=== PATIENT | male | born 1980 | race Caucasian/White ===

== ENCOUNTER 2021-03-24 00:59 | Emergency (ER) | payer BC, SELFPAY ==
[2021-03-24] VITALS (13 sets, daily range): BP systolic 121–141; BP diastolic 65–85; PULSE 98–141; RESP 14–47; TEMP 36.9; O2SAT 97–100
--- NOTE | ~2021-03-24 | XR_ITS ---
EXAMINATION: XR chest 1V portable DATE: 03/24/2021 01:40 INDICATION: Cough. Shortness of breath. TECHNIQUE: A single frontal view of the chest was obtained. COMPARISON: Chest 2 views 07/17/2017 FINDINGS: The chest demonstrates clear lungs without pneumonia, pleural effusion, or pneumothorax. Th e heart size is normal. IMPRESSION: 1. No acute cardiopulmonary disease. Reviewed, dictated and finalized at location A.
[2021-03-24] MEDS: SODIUM CHLORIDE 0.9% IV 1,000 ML 999 ML IV CONT (01:37)
[2021-03-24] MEDS: KETOROLAC 30 MG/ML VIAL (*BKC) IV PUSH (01:40)
[2021-03-24 01:43] LABS: Basophils Percent Auto 0.3 % (0.2-1.2); Eosinophils Absolute Auto 0.1 K/mm3 (0-0.3); Hematocrit 39.3 % (42.0-52.0); Hemoglobin 13.8 g/dL (14.0-18.0); Immature Granulocyte Absolute 0.02 K/mm3 (0.00-0.031); Immature Granulocyte Percent A 0.2 % (0-0.5); Lymphocytes Absolute Auto 0.84 K/mm3 (0.9-3.2); Lymphocytes Percent Auto 8.6 % (18.3-44.2); Mean Corpuscular HGB Conc 35.1 g/dl (32-36); Mean Corpuscular Hemoglobin 30.1 pg (26-34); Mean Corpuscular Volume 85.8 fl (80-100); Mean Platelet Volume 10.7 fl (7.4-10.4); Monocytes Absolute Auto 0.5 K/mm3 (0.1-0.6); Monocytes Percent Auto 5.5 % (2.6-8.5); Neutrophils Absolute Auto 8.3 K/mm3 (1.3-6.7); Neutrophils Percent Auto 84.4 % (45.5-73.1); Platelet Count Result 232 k/mm3 (150-375); Red Blood Count 4.58 M/mm3 (4.6-6.20); Red Cell Distribution Width 12.1 % (11.5-14.5); White Blood Count 9.8 K/mm3 (4.5-10.0)
[2021-03-24 02:08] LABS: Anion Gap 7 mmol/L (8-16); Blood Urea Nitrogen 11 mg/dL (9-20); Calcium 9.3 mg/dL (8.4-10.2); Carbon Dioxide 29 mmol/L (22-30); Chloride 105 mmol/L (98-107); Estimated CRCL calculation 85 ml/min; Estimated Glomerular Filt Rate > 60; Glucose 122 mg/dL (75-110); Potassium 3.8 mmol/L (3.4-5.0); Sodium 141 mmol/L (137-145)
--- NOTE | 2021-03-24 03:20 | ED.SOB ---
HPI - SOB/Dyspnea General Chief Complaint: Shortness of Breath/Dyspnea Stated Complaint: cough Time Seen by Provider: 03/24/21 01:06 History of Present Illness HPI Narrative: Patient is a 40-year-old male who presents ER with cough and shortness of breath. Patient reports over the last day he has developed sinus congestion with sore throat and productive cough. Lying down makes his coughing and sore throat worse. He reports he coughs to the extent that sometimes he feels like he may throw up. He is not vaccinated against Covid. He reports a family member has recently had an illness but is unsure what the diagnosis was. Denies chest pain or chest pressure. Shortness of breath occurs when he has prolonged coughing street and not with exertion. Patient is concerned he is dehydrated from having a fever and needs IV fluid. Related Data Allergies Allergy/AdvReac Type Severity Reaction Status Date / Time No Known Drug Allergies Allergy Mild Verified 04/27/10 23:13 Review of Systems Review of Systems: All systems reviewed & are unremarkable except as noted in HPI and below Constitutional: Constitutional: Reports chills, Reports fatigue and Reports fever(s) ENT: Reports nasal congestion and Reports sore throat Cardiovascular: Cardiovascular: Denies chest pain and Denies radiating jaw, neck or arm pain Respiratory: Respiratory: Denies chest congestion, Reports cough, Reports dyspnea and Denies wheezing Gastrointestinal: Gastrointestinal: Denies abdominal pain, Denies nausea and Denies vomiting Musculoskeletal: Musculoskeletal: Reports myalgias and Denies muscle cramps PMFSH Past Medical History Medical History (Updated 03/24/21 @ 03:27 by Lazaro Lott MD) Healthy adult male Surgical History Surgical History (Updated 03/24/21 @ 03:27 by Lazaro Lott MD) No pertinent past surgical history Exam Narrative: Exam Narrative: GENERAL: Well-appearing, well-nourished, and in no acute distress. HEAD: Normocephalic, atraumatic. ENT: Mucous membranes moist. Pharyngeal erythema without tonsillar hypertrophy or exudate. Uvula midline and nonedematous. TMs normal bilaterally. CHEST: Clear to auscultation. No respiratory distress. HEART: Tachycardic and regular. Normal peripheral pulses. EXTREMITIES: Normal range of motion. No edema. NEURO: Alert and oriented x3. PSYCH: Normal mood and affect. Course Course Emergency Course: Patient swabbed for Covid and strep. Heart rate improved and feels better with IV fluid. Strep negative. Discussed results and treatment plan. Patient verbalized understanding. Vital Signs Vital signs: Vital Signs Temperature 98.5 F 03/24/21 01:01 Pulse Rate 141 H 03/24/21 01:01 Respiratory Rate 22 H 03/24/21 01:01 Blood Pressure 141/69 H 03/24/21 01:01 Pulse Oximetry 100 03/24/21 01:01 Temperature 98.5 F 03/24/21 01:01 Pulse Rate 103 H 03/24/21 02:30 Respiratory Rate 28 H 03/24/21 02:30 Blood Pressure 121/85 03/24/21 02:01 Pulse Oximetry 99 03/24/21 02:30 MDM - SOB/Dyspnea Lab Data Result diagrams: 03/24/21 01:35 03/24/21 01:35 Labs: Lab Results 03/24/21 03/24/21 03/24/21 Range/Units 01:35 01:35 02:36 WBC 9.8 (4.5-10.0) K/mm3 RBC 4.58 L (4.6-6.20) M/mm3 Hgb 13.8 L (14.0-18.0) g/dL Hct 39.3 L (42.0-52.0) % MCV 85.8 (80-100) fl MCH 30.1 (26-34) pg MCHC 35.1 (32-36) g/dl RDW 12.1 (11.5-14.5) % Plt Count 232 (150-375) k/mm3 MPV 10.7 H (7.4-10.4) fl Immature Gran % (Auto) 0.2 (0-0.5) % Neut % (Auto) 84.4 H (45.5-73.1) % Lymph % (Auto) 8.6 L (18.3-44.2) % Brown % (Auto) 5.5 (2.6-8.5) % Eos % (Auto) 1.0 (0-4.4) % Baso % (Auto) 0.3 (0.2-1.2) % Lymph # (Auto) 0.84 L (0.9-3.2) K/mm3 Brown # (Auto) 0.5 (0.1-0.6) K/mm3 Eos # (Auto) 0.1 (0-0.3) K/mm3 Baso # (Auto) 0.0 (0.0-0.1) K/mm3 Abs Immat Gran (auto) 0.02 (0.00
[2021-03-24 19:46] LABS: SARS-CoV-2 RNA PCR Negative
== END 2021-03-24 03:32 | disposition home or self-care (01) ==
PROVIDERS: Emergency Provider Emergency Medicine
DX: B34.9 Viral infection, unspecified (principal); Z20.822 Contact with and (suspected) exposure to COVID-19
CPT/HCPCS: 36415; 71045; 80048; 85025; 87081; 87880; 96361; 96374; 99284; C9803; J1885; J7030; U0003; U0005

== ENCOUNTER → 2021-10-30 02:29 | Outpatient (CLI) | payer BC, SELFPAY ==
[2021-10-30 20:10] LABS: SARS-CoV-2 RNA PCR Positive
== END ==
PROVIDERS: PCP Family Medicine; Visit Provider Nurse Practitioner Family
DX: U07.1 COVID-19 (principal)
CPT/HCPCS: C9803; U0003; U0005

== ENCOUNTER 2022-04-12 09:47 | Emergency (ER) | payer BC, SELFPAY ==
--- NOTE | ~2022-04-12 | XR_ITS ---
EXAMINATION: XR chest 2V 04/12/2022 10:12 INDICATION: Right-sided chest pain PROCEDURE: 2 view chest COMPARISON: 03/24/2021 FINDINGS: The lungs are clear. The cardiomediastinal silhouette is within normal limits. There are no pleural effusions. There is no pneumothorax suspected. IMPRESSION: 1: NO ACUTE CARDIOPULMONARY DISEASE. Reviewed, dictated and finalized at location A.
[2022-04-12 09:55] VITALS: BP 128/82; PULSE 81; RESP 20; TEMP 36.3; O2SAT 100
[2022-04-12 09:59] VITALS: PULSE 86
--- NOTE | 2022-04-12 09:59 | ECG_ITS ---
Measurements Intervals [place] Rate: 92 P: 69 ID: [id number] QRS: 11 QRSD: 97 T: 26 QT: 348 QTc: 432 Interpretive Statements SINUS RHYTHM WITHIN NORMAL LIMITS NO PREVIOUS ECG AVAILABLE FOR COMPARISON Electronically Signed On 04-12-2022 14:40:49 CDT by Brian Luna M.D.
[2022-04-12 10:09] LABS: Basophils Percent Auto 0.5 % (0.2-1.2); Eosinophils Absolute Auto 0.1 K/mm3 (0-0.3); Eosinophils Percent Auto 2.2 % (0-4.4); Hematocrit 41.2 % (42.0-52.0); Hemoglobin 14.1 g/dL (14.0-18.0); Immature Granulocyte Absolute 0.02 K/mm3 (0.00-0.031); Immature Granulocyte Percent A 0.4 % (0-0.5); Lymphocytes Absolute Auto 2.31 K/mm3 (0.9-3.2); Lymphocytes Percent Auto 41.4 % (18.3-44.2); Mean Corpuscular HGB Conc 34.2 g/dl (32-36); Mean Corpuscular Hemoglobin 30.2 pg (26-34); Mean Corpuscular Volume 88.2 fl (80-100); Mean Platelet Volume 10.3 fl (7.4-10.4); Monocytes Absolute Auto 0.4 K/mm3 (0.1-0.6); Neutrophils Absolute Auto 2.7 K/mm3 (1.3-6.7); Neutrophils Percent Auto 48.5 % (45.5-73.1); Platelet Count Result 258 k/mm3 (150-375); Red Blood Count 4.67 M/mm3 (4.6-6.20); White Blood Count 5.6 K/mm3 (4.5-10.0)
[2022-04-12 10:21] LABS: Alanine Aminotransferase 30 U/L (6-50); Albumin Level 4.7 g/dL (3.5-5.1); Alkaline Phosphatase 52 U/L (38-126); Anion Gap 8 mmol/L (8-16); Aspartate Amino Transferase 36 U/L (17-59); Bilirubin,Total 0.8 mg/dL (0.2-1.3); Blood Urea Nitrogen 17 mg/dL (9-20); Carbon Dioxide 24 mmol/L (22-30); Chloride 105 mmol/L (98-107); Estimated CRCL calculation 92 ml/min; Estimated Glomerular Filt Rate > 60; Glucose 103 mg/dL (65-110); Lipase 118 U/L (23-300); Potassium 4.1 mmol/L (3.4-5.0); Sodium 137 mmol/L (137-145)
--- NOTE | 2022-04-12 10:25 | ED.CHESTPAIN ---
HPI - Chest Pain General Chief Complaint: Chest Pain Stated Complaint: Chest Heavy, Pain Time Seen by Provider: 04/12/22 09:54 Source: RN notes reviewed History of Present Illness HPI narrative: Patient presents emergency department from home for chest pain. Patient states that this morning he awoke and was getting up for a walk when he began to notice pain in the right side of his chest the pain is located under the right lower chest and is described as sharp and stabbing he states the pain is present when he takes a deep inspiration but resolves when he holds his breath or is not breathing the patient states that he has had no fevers or chills no cough no abdominal pain no nausea vomiting. He denies any radiation of the pain. Patient states he is supposed to be getting this evening Related Data Allergies Allergy/AdvReac Type Severity Reaction Status Date / Time No Known Drug Allergies Allergy Mild none Verified 09/04/21 08:45 Review of Systems Review of Systems: Gen.: Denies fevers or chills ENT: Denies congestion Respiratory: Denies shortness of breath or cough CV: See HPI GI: Denies abdominal pain nausea, emesis or diarrhea Musculoskeletal: Denies back pain or muscle pain Neuro: Denies numbness, tingling, weakness or focal weakness Skin: Denies rash Except as documented, all other systems reviewed and negative [facility] Past Medical History Medical History BMI 26.0-26.9,adult Healthy adult male Surgical History Surgical History No pertinent past surgical history Family History Family History Father Lung cancer Mother Rheumatoid arthritis Sibling No problems noted. Social History Social History Smoking status: Never smoker Second hand tobacco smoke exposure: No Alcohol intake: current Substance use: never Substance use type: does not use Additional occupation/education comments: sales Gender identity (if verbalized by the patient): Male Exam Narrative: APPEARANCE: No acute distress, nontoxic, resting in bed EYES: EOMI HEENT: Normocephalic, atraumatic, OMM RESPIRATORY: No respiratory distress Clear to auscultation bilaterally with no rhonchi wheezing or rales. CARDIOVASCULAR: Regular rate and rhythm without murmurs rubs or gallops. Chest: No tenderness to palpation pain with deep inspiration on the right lower chest resolved with holding breath ABDOMINAL: Soft, nontender, nondistended, no rebound or guarding MUSCULOSKELETAl: Moves all extremities. No clubbing, cyanosis or edema. NEURO: Awake and alert. Following commands, speech normal, no focal deficits SKIN:: Warm, dry. No rashes lesions or abrasions PSYCHIATRIC: Normal affect/mood, Course Course Emergency Course: Patient states chest pain has resolved with medication Discussed with patient results of workup and diagnosis. Discussed need for follow-up with primary care, proper use of medication, and reasons to return to the emergency department. Patient understands and agrees to current treatment plan Vital Signs Vital signs: Vital Signs Temperature 97.3 F L 04/12/22 09:55 Pulse Rate 81 04/12/22 09:55 Respiratory Rate 20 04/12/22 09:55 Blood Pressure 128/82 04/12/22 09:55 Pulse Oximetry 100 04/12/22 09:55 Oxygen Delivery Room Air 04/12/22 09:55 Temperature 97.3 F L 04/12/22 09:55 Pulse Rate 86 04/12/22 09:59 Respiratory Rate 20 04/12/22 09:55 Blood Pressure 128/82 04/12/22 09:55 Pulse Oximetry 100 04/12/22 09:55 Oxygen Delivery Room Air 04/12/22 09:55 MDM - Chest Pain MDM Narrative Medical decision making narrative: Patient's EKGs and labs are without significant high risk changes. Cardiac risk factors reviewed. Patient is felt likely low ri
[2022-04-12 10:27] LABS: Prothrombin Time 13.2 Seconds (11.1-14.7)
[2022-04-12 10:28] LABS: Partial Thromboplastin Time 28.8 SECONDS (22.3-36.8)
[2022-04-12] MEDS: KETOROLAC 30 MG/ML VIAL (*BKC) IV PUSH (10:40)
[2022-04-12 10:44] LABS: Troponin I < 0.012 ng/mL (0.000-0.034)
[2022-04-12 11:17] LABS: D Dimer < 0.27 ug/mL (<0.48)
[2022-04-12 12:50] LABS: Troponin I < 0.012 ng/mL (0.000-0.034)
[2022-04-12 13:01] VITALS: BP 124/67; PULSE 80; RESP 18; O2SAT 100
== END 2022-04-12 13:03 | disposition home or self-care (01) ==
PROVIDERS: Emergency Provider Emergency Medicine; PCP Family Medicine
DX: R07.89 Other chest pain (principal)
CPT/HCPCS: 36415; 71046; 80053; 83690; 84484; 85025; 85380; 85610; 85730; 93005; 96374; 99284; J1885

== ENCOUNTER 2022-08-30 01:23 | Day surgery (SDC) | payer BC, SELFPAY ==
[2022-08-27 13:34] VITALS: BMI 26.6
--- NOTE | 2022-08-27 13:40 | PC.NURSE ---
Report to the Outpatient Waiting Room, entrance under the green pavilion located off [facility], at time _1000 on date 08/30/22. Planned Procedure Time: _1200_. Time changes happen often and if your time is changed the preop area will call you the afternoon before. - You and your visitor will be asked to self-screen and do not enter if you have any COVID symptoms. - We encourage only one visitor and NO visitors under age 16 are allowed at this time. Your visitor will receive communication by the phone number that is given day of service. - The patient visitor is requested to social distance or may leave the building when not with patient due to restrictions. - A mask is required within the hospital. Patients may have clear liquids (water, carbonated beverages, clear teas, apple juice) until 3 hours prior to surgery with a maximum of 20 ounces. - No food from midnight until time of surgery - Infants may have breast milk until 4 hours before surgery, formula 6 hours prior to surgery. - Children will be allowed to drink immediately following surgery. If applicable, please bring a bottle or sippy cup to assist with drinking. Juice, water, soda, and popsicles are readily available. For infants on formula, please bring formula the day of surgery. Pacifiers are allowed. PATIENT STATES HE RECEIVED INSTRUCTIONS FROM MD IN OFFICE. Take the following medications with a SIP of water the morning of surgery: INHALER AND ALPRAZOLAM IF NEEDED Medications to discontinue per physician NONE Date to take last dose Please no make-up, nail malay, hairspray, perfume, deodorant, or body powder the day of surgery. No jewelry (including any body piercings) or valuables the day of surgery, leave them at home. Please take a shower or bath the night before, or the morning of, surgery with an antibacterial soap. Wear comfortable, loose fitting clothing. Children are encouraged to wear pajamas. - Jewelry must be removed prior to entering the operating room. Rings and piercings that are not removed may be cut off. - The hospital will not accept responsibility for valuables. - Please leave all valuables, including medications, at home the day of surgery. If you are going home after surgery, a licensed sales route driver must drive you home. - NO public transportation without another adult. - We recommend that an adult stay with you for 24 hours following discharge. - We also recommend that you do not drive, make important decision, drink alcoholic beverages, or take any drugs that were not prescribed by your health care provider for at least 24 hours after your discharge time. For Pediatric surgeries, we recommend two adults accompany the child home. Follow any additional instructions given to you from your surgeon. If you or anyone in your household have experienced Covid symptoms in the past week, please notify your surgeon or the nurse liaison at the phone number below for possible testing. Telephone instructions given to _PATIENT__and asked if any additional questions and then verbalized understanding. Patient advised to call surgeon office or pre surgery nurse liaison [phone] if any additional questions.
[2022-08-30 10:30] VITALS: BP 125/57; PULSE 81; RESP 16; TEMP 36.7; O2SAT 98
[2022-08-30] MEDS: LACTATED RINGERS 1,000 ML 30 ML IV CONT (10:34)
[2022-08-30] MEDS: KETOROLAC 15 MG/ML VIAL (*BKC) IV PUSH (10:35)
[2022-08-30] MEDS: ACETAMINOPHEN 500 MG TABLET 1000 MG PO (10:35)
--- NOTE | 2022-08-30 11:05 | P.PNAN_ITS ---
Anes - Initial Pre Proc Eval Procedure: Operation Date: 08/30/22 12:00 Proposed Procedures p Rectal Exam Under Anesthesia, Internal and External Hemorrhoidectomy Times One Column - Rito Cazares DO Date/Time: 08/30/22 11:05 Surgeon: Rito Cazares DO Pre Op Diagnosis: internal and external hemorrhoids w/complications Patient Data Age: 42 Gender: M Height: 1.75 m Weight: 81.4 kg Last Vital Signs Temp 36.7 C 08/30/22 10:30 Pulse 81 08/30/22 10:30 Resp 16 08/30/22 10:30 BP 125/57 L 08/30/22 10:30 Pulse Ox 98 08/30/22 10:30 O2 Del Method Room Air 08/30/22 10:30 Allergies Allergy/AdvReac Type Severity Reaction Status Date / Time No Known Drug Allergies Allergy Mild none Verified 08/30/22 10:26 Home Medications Medication Instructions Recorded Confirmed Type hydrocortisone-pramoxine 1 %-1 % 1 applic RECTAL QID PRN 09/04/21 08/30/22 Rx rectal cream hemorrhoids #30 grams albuterol sulfate 90 mcg/actuation 1 inh inhalation Q4H PRN shortness 04/30/22 08/30/22 Rx aerosol inhaler of breath or wheezing #8.5 grams alprazolam 0.5 mg tablet 0.5 mg PO DAILY PRN anxiety #90 04/30/22 08/30/22 Rx tabs trazodone 50 mg tablet 50 mg PO QHS PRN insomnia #30 tabs 04/30/22 08/30/22 Rx Patient hx anesthesia problems: none Family hx anesthesia problems: none Results Review: All pre-operative results and documents have been reviewed as part of the pre- operative evaluation. [facility] Past Medical History Medical History Anxiety Hyperlipidemia CARLITO (obstructive sleep apnea) Surgical History Surgical History No pertinent past surgical history Family History Family History Father Lung cancer Mother Rheumatoid arthritis Sibling No problems noted. Social History Social History Smoking status: Never smoker Second hand tobacco smoke exposure: No Alcohol intake: current Drinks per week: 5 Substance use: never Substance use type: does not use Living arrangements: with family Additional occupation/education comments: sales Gender identity (if verbalized by the patient): Male Spiritual care concerns: No Anes - Eval Final PreProcedure Day of Procedure 08/30/22 11:05 Patient weight: overweight Heart: regular rate and rhythm Lungs: clear to auscultation Airway: Mallampati scale class III Neurological: alert and oriented Last oral intake: >/= 8 hours ASA classification: II Emergent: no Anesthetic plan: proceed Anesthesia type and monitoring: general GIVS and standard monitoring Results Review: All pre-operative results and documents have been reviewed as part of the pre- operative evaluation. Informed Consent: The patient's anesthetic plan and its attendant risks and benefits were discussed with the patient/family/POA. Questions were solicited and answers provided to the satisfaction of the patient/family/POA.
--- NOTE | 2022-08-30 11:11 | PM.IMHP ---
H&P: HPI History of Present Illness Date/Time: 08/30/22 11:11 Chief Complaint: Internal and external hemorrhoids Narrative: 42 yo man presents for hemorrhoidectomy. He denies any changes since last seen in office. Review of Systems Review of Systems: All systems reviewed & are unremarkable except as noted in HPI and below Constitutional: Constitutional: Denies chills, Denies fever(s), Denies headache(s) and Denies weight loss Eyes: Eyes: Denies change in vision ENT: Denies dizziness, Denies headache(s), Denies neck mass and Denies throat swelling Cardiovascular: Cardiovascular: Denies chest pain, Denies lightheadedness and Denies dyspnea Respiratory: Respiratory: Denies cough, Denies dyspnea and Denies wheezing Gastrointestinal: Gastrointestinal: Denies abdominal pain, Denies change in bowel habits, Denies nausea and Denies vomiting Genitourinary: Genitourinary: Denies hematuria and Denies dysuria Musculoskeletal: Musculoskeletal: Reports as per HPI Integumentary/Breasts: Skin/Breast: Reports as per HPI Neurologic: Denies dizziness and Denies headache(s) Allergic/Immunologic: Allergic/Immunologic: Denies throat swelling and Denies wheezing PMFSH Past Medical History Medical History Anxiety Hyperlipidemia CARLITO (obstructive sleep apnea) Surgical History Surgical History No pertinent past surgical history Family History Family History Father Lung cancer Mother Rheumatoid arthritis Sibling No problems noted. Social History Social History Smoking status: Never smoker Second hand tobacco smoke exposure: No Alcohol intake: current Drinks per week: 5 Substance use: never Substance use type: does not use Living arrangements: with family Additional occupation/education comments: sales Gender identity (if verbalized by the patient): Male Spiritual care concerns: No Meds Home Medications and Allergies Home Medications Medication Instructions Recorded Confirmed Type hydrocortisone-pramoxine 1 %-1 % 1 applic RECTAL QID PRN 09/04/21 08/30/22 Rx rectal cream hemorrhoids #30 grams albuterol sulfate 90 mcg/actuation 1 inh inhalation Q4H PRN shortness 04/30/22 08/30/22 Rx aerosol inhaler of breath or wheezing #8.5 grams alprazolam 0.5 mg tablet 0.5 mg PO DAILY PRN anxiety #90 04/30/22 08/30/22 Rx tabs trazodone 50 mg tablet 50 mg PO QHS PRN insomnia #30 tabs 04/30/22 08/30/22 Rx Allergies Allergy/AdvReac Type Severity Reaction Status Date / Time No Known Drug Allergies Allergy Mild none Verified 08/30/22 10:26 Vital Signs Vital Signs - 24 hr 08/30/22 10:30 Temperature 36.7 C Pulse Rate 81 Respiratory Rate 16 Blood Pressure 125/57 L Pulse Oximetry 98 Oxygen Delivery Room Air Exam Const: General: no acute distress and alert Orientation/consciousness: patient oriented x3 HENMT: Head: normocephalic and atraumatic Ears: hearing grossly normal bilaterally Face/Nose/Sinus: Normal nares present Mouth: Yes Normal oral and palatal mucosa present Eyes: Periorbital: periorbital findings normal Sclera: sclerae normal EOM: EOMs intact bilaterally Neck: Neck: normal visual inspection, no lymphadenopathy and trachea midline Chest: Chest palpation & inspection: normal inspection of the chest Resp: Effort & Inspection: normal respiratory effort Auscultation: clear to auscultation bilaterally Cardio: Jugular venous distension: no JVD Rate: regular rate Rhythm: regular rhythm Heart sounds: S1 normal heart sound present and S2 normal heart sound present Peripheral pulses: Peripheral pulses 2+ throughout GI: Inspection: normal to inspection GI Palp: Yes Soft to palpation, No Tenderness to palpation present (GI), N
--- NOTE | 2022-08-30 11:13 | WPDHPUPDATE1 ---
History and Physical Update Update Date/Time: 08/30/22 11:13 History and Physical has been reviewed, including an updated exam of the patient. There are NO changes in the patient's condition. Risks, benefits, and alternatives have been discussed and questions answered. Patient agrees to proceed with procedure.
[2022-08-30] MEDS: ceFAZolin 2 GM/D5W 50 ML 2 GM/50 ML BAG IVPB (12:00)
--- NOTE | 2022-08-30 12:55 | W.PM.PROC2 ---
Procedure Note - Detailed Date of Procedure 08/30/22 Pre-op Diagnosis internal and external hemorrhoids w/complications Post-op Diagnosis Same (Right anterior and right posterior internal and external hemorrhoids) Procedure Performed Rectal exam under anesthesia internal and external hemorrhoidectomy x2 columns Surgeon Rito Cazares, DO Anesthesia MAC and Local (2% lidocaine with epinephrine and Exparel) Indications This is a 42-year-old man who presented with bleeding internal and external hemorrhoids. He has had bleeding off and on for the last 5 years. He occasionally notes blood dripping the toilet. On exam he was primarily noted to have a right posterior internal and external hemorrhoid. Discussions were made with the patient about treatment options and decision was made to proceed with rectal exam under anesthesia with internal and external hemorrhoidectomy. Findings The rectal exam under anesthesia was performed. Patient was found to have prolapsing internal hemorrhoids in both the right anterior and right posterior locations. The right posterior location was more prominent. Internal and external Hemorrhoidectomy was performed in the right posterior location. I then reinspected the area still appeared to be moderate prolapsing internal external hemorrhoids the right anterior location, therefore internal and external hemorrhoidectomy was performed in right anterior location as well. Description of Procedure Procedure as well as risks, benefits, and alternatives were discussed with the patient written consent was obtained placed in chart prior to procedure. Patient was brought back to surgical suite. He was placed prone delaney-knife position operating table. Time-out was done to confirm patient procedure. Sedation was then administered by anesthesia. His perirectal was prepped draped in sterile fashion using Betadine prep. Digital rectal was initially performed. 2% lidocaine with epinephrine was then infiltrated locally perirectal region. Exparel was then also infiltrated deeper in the perirectal region. A Hill-Powell anoscope was inserted and the anorectal was carefully inspected. I then removed the anoscope and then placed Fansler anoscope and identified the right posterior hemorrhoid bundle. A triangular incision was then made around the right posterior external hemorrhoid tissue scalpel. Hemorrhoid tissue was carefully off sphincter muscles. A 2-0 [id number] suture was placed in apex internal hemorrhoid bundle and then a clamp was placed across the internal hemorrhoid tissue the hemorrhoid was cut away. The 2-0 chromic suture was then run a along internal hemorrhoid tissue to the anal verge. This was then tied down place. The anoderm was then reapproximated using 3-0 chromic simple interrupted sutures. Irrigated the area inspected for hemostasis which appeared adequate. The anoscope was then repositioned to right anterior hemorrhoid bundle. A triangular incision was then also made on the external skin with a 15 blade scalpel. The hemorrhoid tissue was lifted off of the sphincter muscles deep to it. A 2-0 chromic [id number] suture was then placed at the apex of the hemorrhoid bundle and then the clamp was placed across the hemorrhoid tissue and the hemorrhoid was cut away. The suture was then run along hemorrhoid tissue down to the anal verge then this was tied in place. The anoderm was then reapproximated using 3-0 chromic simple interrupted sutures. The area was irrigated and hemostasis appeared adequate. One final inspection was then made around the anal rectal canal and no other abnormalities were noted. The anoscope was then removed. Xeroform gauze was then applied at the incisions followed by fluff gauze and mesh underwear. The patient was then awakened from anesthesia and transferred to recovery. Estimated Blood Loss 10 Pathology Yes (Internal and external hemorrhoids) Complications No immediate complications
[2022-08-30 12:57] VITALS: BP 95/62; PULSE 82; RESP 16; O2SAT 100
[2022-08-30 13:22] VITALS: BP 111/67; PULSE 79; RESP 16
[2022-08-30 13:43] VITALS: BP 100/67; PULSE 65; RESP 14
== END 2022-08-30 13:45 | disposition home or self-care (01) ==
PROVIDERS: PCP Family Medicine; Visit Provider Surgery
PROC: (CPT 46260; principal; 2022-08-30 12:00)
DX: K64.4 Residual hemorrhoidal skin tags (principal); K64.8 Other hemorrhoids; E78.5 Hyperlipidemia, unspecified; G47.33 Obstructive sleep apnea (adult) (pediatric)
CPT/HCPCS: 46260; 88304; A9270; C9290; J0690; J1100; J1885; J2250; J2405; J2704; J3010; J7120

== ENCOUNTER 2023-11-13 15:27 | Outpatient (CLI) | payer SELFPAY ==
--- NOTE | ~2023-11-13 | XR_ITS ---
XR foot LT min 3V DATE: 11/13/2023 15:49 INDICATION: Right foot pain TECHNIQUE: 4 views COMPARISON: None FINDINGS: There is mild osteoarthritis at the first metatarsophalangeal joint. No fracture, dislocati on, periosteal reaction or bone destruction. IMPRESSION: Mild osteoarthritis at first metatarsophalangeal joint Reviewed, dictated and finalized at location L. L [employer] [employer]
== END 2023-11-13 15:28 ==
PROVIDERS: PCP Nurse Practitioner Adult Health; Visit Provider Nurse Practitioner Adult Health
DX: M19.071 Primary osteoarthritis, right ankle and foot (principal)
CPT/HCPCS: 73630

== ENCOUNTER 2023-12-10 08:42 | Outpatient (CLI) | payer OTHER, SELFPAY ==
--- NOTE | 2023-12-11 16:54 | WPDHOMESLEEP ---
Sleep Study - Home Unattended Date of Study: 12/10/23 Ordering Provider: Armen Mccarty MD Interpreting Provider: Makenzie Rod MD Home Sleep Study Type: Watch BRUNA Height: 1.75 m Weight: 86.183 kg Body Mass Index: 28.0 Neck Circumference (inches): 15 [place]: 5 Reason for Sleep Study Hypersomnia, witnessed apneas Sleep History Ruben Anthony is a 43-year-old man with witnessed apnea, gasping for breath at night, and loud snoring for a least 3-4 years. He occasionally awakens from sleep feeling short of breath. He never wakes at night with heartburn, belching or coughing.??He constantly snores, and constantly snores loudly enough that others complain. He occasionally has trouble sleeping when he has a cold. He frequently wakes up gasping for breath during the night. He frequently has breathing problems at night. He never sweats excessively at night. He rarely notices his heart pounding or beating irregularly during the night. He rarely falls asleep during the day. He never falls asleep involuntarily, never falls asleep while driving. He never experiences loss of muscle tone with strong emotion. He never has daytime difficulty at work due to excessive sleepiness. He never feels paralyzed on waking or falling asleep. He never experiences vivid dreams upon waking or falling asleep. He rarely feels afraid of going to sleep. He rarely has nightmares. He rarely recalls his dreams. He occasionally has thoughts racing through his mind. He occasionally feels sad or depressed. He occasionally feels anxiety. He rarely notices parts of his body jerk. He rarely kicks during the night. He never feels crawling or aching feelings in his legs. He never feels leg pain at night. He never has morning jaw pain, rarely grinds his teeth at night. He never feels bothered by pain during the day, never awakened by pain during the night. He rarely wakes up feeling stiff in the morning, and he rarely wakes feeling sore or achy. He rarely awakens with pain in his neck, spine, or joints. Normal bedtime is between 8:00 p.m. and 9:00 p.m., falling asleep within 5-10 minutes, waking 1 and 2 times at night, repositioning and trying to go back to sleep which may take 5 minutes but up to an hour. Wake time is 6:15 a.m.. He typically gets between 8 and 10 hours of sleep per night. He takes no naps in the day, however if he does take a short 10-15 minute nap it might be refreshing. Habits:??Tobacco: never smoker Caffeine: 2 servings per day. Alcohol: none Recreational substances: none [facility] Past Medical History Medical History Anxiety BMI 28.0-28.9,adult Hyperlipidemia CARLITO (obstructive sleep apnea) Right foot pain Sleep apnea, unspecified Surgical History Surgical History History of hemorrhoidectomy 08/30/2022 - rectal EUA; internal and external hemorrhoidectomy x2 columns No pertinent past surgical history Family History Family History Father Lung cancer Mother Rheumatoid arthritis Sibling No problems noted. Social History Social History Smoking status: Never smoker Second hand tobacco smoke exposure: No Alcohol intake: current Drinks per week: 5 Substance use: never Substance use type: does not use Lack of Transportation: No Lack of Food: Never True Current Housing: I Have Housing Concerned About Future Housing: No Difficulty Paying Gas/Electric Bills: No Difficulty Paying for Meds: No Currently Unemployed: No Education: Associate Degree Difficulty w/ Childcare or Family Care: No Living arrangements: with family Occupation/Education: occupation Additional occupation/education comments: sales Gender identity (if verbalized by the patient): Male [employer]ual care priyanka
[2023-12-23 19:05] VITALS: BMI 28.0
== END 2023-12-11 07:30 | disposition home or self-care (01) ==
LOC: ANHCSM 08:58
PROVIDERS: PCP Family Medicine; Visit Provider Family Medicine
DX: G47.10 Hypersomnia, unspecified (principal)
CPT/HCPCS: 95800